=== PATIENT | male | born 2000 | race Two or more races ===

== ENCOUNTER 2021-09-02 09:17 | Emergency (ER) | payer OTHER ==
[~2021-09-02] VITALS: Ht 182.9 cm; Wt 105.0 kg
[2021-09-02 09:22] VITALS: BP 182/75
[2021-09-02] MEDS ORDERED: AMOX-277 PO (10:51)
[2021-09-02] MEDS ORDERED: IBUP800T27 PO (10:51)
== END 2021-09-02 11:05 | disposition home or self-care (01) ==
LOC: ER 09:17
DX: H61.22 Impacted cerumen, left ear (principal); H66.92 Otitis media, unspecified, left ear
CPT/HCPCS: 69209

== ENCOUNTER 2023-06-06 10:31 | Emergency (ER) | payer MEDICAID, OTHER ==
[~2023-06-06] VITALS: Ht 185.4 cm; Wt 134.5 kg
[~2023-06-06 10:31] MED LIST: AMOX875T4 PO; IBUP-1456 PO
[2023-06-06] MEDS ORDERED: NAP500T PO (13:31)
[2023-06-06 13:40] VITALS: BP 113/64; PULSE 82; RESP 18; TEMP 98.3; O2SAT 97
== END 2023-06-06 13:55 | disposition home or self-care (01) ==
LOC: ER 10:31
DX: M25.461 Effusion, right knee (principal); M25.561 Pain in right knee
CPT/HCPCS: 73562